=== PATIENT | female | born 1970 | race Caucasian/White ===

== ENCOUNTER → 2016-05-31 | Outpatient (CLI) | payer MEDICAID ==
--- NOTE | 2016-05-31 13:12 | XR ---
EXAMINATION TYPE: XR chest 2V DATE OF EXAM: 05/31/2016 12:58 PM COMPARISON: NONE HISTORY: Chest pain TECHNIQUE: Frontal and lateral views of the chest are obtained. FINDINGS: There is no focal air space opacity. No evidence for pnuemothorax.No pleural effusion. The cardiac silhouette size is within normal limits. The osseous structures are grossly intact. IMPRESSION: 1. No acute cardiopulmonary process.
== END | disposition home or self-care (01) ==
LOC: RADXRMAIN 12:11
PROVIDERS: ATTEND Internal Medicine
DX: R05 Cough (principal)
CPT/HCPCS: 71020

== ENCOUNTER → 2016-06-03 | Outpatient (CLI) | payer MEDICAID ==
--- NOTE | 2016-06-03 09:11 | MM ---
Reason for exam: follow-up at short interval from prior study. Last mammogram was performed 6 months ago. History: Patient had first child at age 31. Took progesterone for 2 years beginning at age 29. Physical Findings: Nurse did not find any significant physical abnormalities on exam. MG 3D Diag Mammo W/Cad RAI Bilateral CC and MLO view(s) were taken. Prior study comparison: December 18, 2015, right breast MG 3d work up w/cad RT. December 15, 2015, bilateral MG 3d screening mammo w/cad. November 28, 2014, bilateral MG screening mammo w CAD. There are scattered fibroglandular densities. There is no discrete abnormality. These results were verbally communicated with the patient and result sheet given to the patient on 06/03/16. ASSESSMENT: Negative, BI-RAD 1 RECOMMENDATION: Routine screening mammogram of both breasts in 1 year.
--- NOTE | 2016-06-03 09:12 | USB ---
Reason for exam: follow-up at short interval from prior study. History: Patient had first child at age 31. Took progesterone for 2 years beginning at age 29. US Breast BILAT Right breast ultrasound includes all four quadrants, the retroareolar region and axilla. Finding demonstrates no cystic or solid lesion seen. Left breast ultrasound includes all four quadrants, the retroareolar region and axilla. Finding demonstrates no cystic or solid lesion seen. These results were verbally communicated with the patient and result sheet given to the patient on 06/03/16. ASSESSMENT: Negative, BI-RAD 1 RECOMMENDATION: Routine screening mammogram of both breasts in 1 year. Manage patient on a clinical basis.
== END | disposition home or self-care (01) ==
LOC: RADMAMWWP 07:32
PROVIDERS: ATTEND Obstetrics & Gynecology
DX: N64.4 Mastodynia (principal); N63 Unspecified lump in breast
CPT/HCPCS: 76641; G0204; G0279

== ENCOUNTER → 2016-06-07 | Outpatient (CLI) | payer MEDICAID ==
[2016-06-07 15:30] LABS: Creatine Kinase 73 U/L (30-135); LDH 348 U/L (313-618); Magnesium 1.8 mg/dL (1.6-2.3)
[2016-06-07 15:32] LABS: Rheumatoid Factor, Qnt <9 IU/mL (<12)
[2016-06-07 16:36] LABS: Vitamin B12 447 pg/mL (239-931)
[2016-06-07 20:04] LABS: Hemoglobin A1C 4.8 % (4.2-6.1)
[2016-06-08 06:37] LABS: ANA w/Reflex to Titer POSITIVE (NEGATIVE)
== END | disposition home or self-care (01) ==
LOC: LABWHC1 14:45
PROVIDERS: ATTEND Internal Medicine
DX: R20.2 Paresthesia of skin (principal); M47.896 Other spondylosis, lumbar region
CPT/HCPCS: 36415; 82306; 82550; 82607; 82746; 83036; 83615; 83735; 85652; 86038; 86039; 86200; 86431

== ENCOUNTER → 2016-06-08 | Outpatient (CLI) | payer MEDICAID ==
[2016-06-08 18:34] LABS: Amorphous Sediment,Urine Many /hpf; Appearance,Urine Turbid (Clear); Bilirubin,Urine Negative (Negative); Glucose,Urine (UA) Negative (Negative); Ketones,Urine 2+ (Negative); Leukocyte Esterase,Urine Negative (Negative); Mucus,Urine Many /hpf; Nitrite,Urine Negative (Negative); PH, Urine 5.5 (5.0-8.0); Particle Count 286893; Protein,Urine 1+ (Negative); RBC,Urine 1 /hpf (0-5); Specific Gravity,Urine 1.023 (1.001-1.035); Squamous Epithelial Cell,Urine 4 /hpf (0-4); UA Billing (MACRO vs. MICRO) MICRO; Urobilinogen,Urine <2.0 mg/dL (<2.0); WBC,Urine 1 /hpf (0-5)
== END ==
LOC: LABWHC1 16:13
PROVIDERS: ATTEND Internal Medicine
DX: M47.896 Other spondylosis, lumbar region (principal); R20.2 Paresthesia of skin
CPT/HCPCS: 81001

== ENCOUNTER → 2016-06-09 | Outpatient (CLI) | payer MEDICAID ==
[2016-06-10 04:02] LABS: Complement Total (CH50) 110 CAE (54-144)
[2016-06-10 13:44] LABS: C-ANCA <1:20 Titer (<1:20); P-ANCA <1:20 Titer (<1:20)
[2016-06-10 14:13] LABS: Scleroderma 70 Antibody 3 UNITS (<20)
== END | disposition home or self-care (01) ==
LOC: LABWHC1 14:34
PROVIDERS: ATTEND Internal Medicine
DX: R76.0 Raised antibody titer (principal)
CPT/HCPCS: 36415; 83516; 86160; 86162; 86225; 86235; 86255

== ENCOUNTER → 2016-06-13 | Outpatient (CLI) | payer MEDICAID ==
[2016-06-14 07:08] LABS: Mis test requested (Blood) Lyme Ab with Reflex
== END | disposition home or self-care (01) ==
LOC: LABWHC1 12:38
PROVIDERS: ATTEND Internal Medicine
DX: R76.0 Raised antibody titer (principal)
CPT/HCPCS: 36415; 86140; 86618

== ENCOUNTER → 2016-07-01 | Outpatient (CLI) | payer MEDICAID ==
[2016-07-01 09:45] LABS: Calcium 9.7 mg/dL (8.4-10.2)
[2016-07-05 05:44] LABS: Vitamin E (Alpha Tocopherol) 1061 ug/dL (500-1800)
[2016-07-06 19:36] LABS: Vitamin K 202 pg/mL (80-1160)
[2016-07-10 09:06] LABS: Nicotinamide 21 ng/mL; Nicotinic Acid None Detected; Nicotinuric Acid None Detected
== END | disposition home or self-care (01) ==
LOC: LABWHC1 06-30 12:36
PROVIDERS: ATTEND Psychiatry & Neurology Pain Medicine
DX: R20.2 Paresthesia of skin (principal)
CPT/HCPCS: 36415; 82310; 82607; 83519; 83735; 84207; 84425; 84446; 84590; 84591; 84597

== ENCOUNTER → 2016-07-06 | Outpatient (CLI) | payer MEDICAID ==
--- NOTE | 2016-07-06 14:02 | MR ---
EXAMINATION TYPE: MR lumbar spine wo con DATE OF EXAM: 07/06/2016 COMPARISON: NONE HISTORY: lumbago per order. Right-sided back pain with Tingling and numbness in hands and feet per pa tient. TECHNIQUE: Multiplanar, multisequence imaging of the lumbar spine is performed without IV contrast. FINDINGS: Sagittal images of the lumbar spine show vertebral body heights and alignment to appear sat isfactory. There is disc desiccation L4-L5 and L5-S1 levels. Mild disc space L5-S1 level is present. There is increased signal posteriorly consistent with annular tear at L4-L5 and L5-S1 levels. The int ervertebral discs otherwise demonstrate normal heights and hydration. No large posterior disc herniat ions are seen on sagittal images. The conus medullaris is normal in position and signal. The bone m arrow signal intensity is within normal limits. No significant spurring is noted. There is 9 mm Tarlo v cyst posteriorly superior S2 level on sagittal image 8. On same image there is 6 mm T2 hypointense lesion posterior uterine fundus could reflect subcentimeter fibroid. Axial images show no the T12-L1, L1-L2, and L2-L3 levels to appear within normal limits. Axial images at L3-L4 level show mild broad based posterior disc protrusion mild facet arthropathy bu t spinal canal is preserved and bilateral neural foramina are patent. Axial images at L4-L5 level show broad-based right posterior disc protrusion mildly effacing anterior thecal sac, bilateral neural foramina are patent. Axial images at L5-S1 level show mild facet arthropathy bilaterally. There is broad-based left parace ntral disc protrusion seen. Spinal canal is preserved. Bilateral neural foramina are patent. IMPRESSION: Some mild multilevel degenerative changes in the mid to lower lumbar spine as detailed ab ove.
--- NOTE | 2016-07-06 14:11 | MR ---
EXAMINATION TYPE: MR brain/cspine wo DATE OF EXAM: 07/06/2016 COMPARISON: NONE HISTORY: Headache and cervicalgia per order. Additional symptoms of allodynia with pain or weakness i n both arms and fingers per patient. TECHNIQUE: Multiplanar, multisequence imaging of the cervical spine, brain, and brainstem are all per formed without IV contrast. FINDINGS: BRAIN: Diffusion weighted images demonstrate no evidence of a recent infarct or other diffusion abnormality. There is no extraaxial fluid collection or significant white matter signal abnormality. The ventricu lar system and cisternal spaces are normal in size and appearance. The brain volume is age appropria te. Midline structures demonstrate normal morphology. The craniocervical junction appears within normal limits. Normal vascular flow voids are present. The visualized sinuses are clear and the globes are i ntact. Artifact at maxillary level is noted. IMPRESSION: No suspicious finding identified. C-SPINE: FINDINGS: Sagittal images of the cervical spine show the craniocervical junction to appear within nor mal limits. The cervical and upper thoracic spinal cord is normal in course, caliber, and signal. V ertebral alignment is anatomic. Mild disc space narrowing C5-C6 level is present. The vertebral body and intravertebral disk heights are otherwise normal. Posterior disc herniations are seen effacing an terior thecal sac C5-C6 through C7-T1 levels on sagittal images. There is heterogeneous increased T2 signal in the inferior C6 endplate. No significant spurring is present. Axial images show the C2-C3, C3-C4, C4-C5 levels all to appear within normal limits. Axial images at C5-C6 level show broad-based central disc protrusion effacing anterior thecal sac on axial image 25, there is mild bilateral neural foraminal narrowing at this level identified. Axial images at C6-C7 level show broad-based central disc protrusion effacing anterior thecal sac jamie rly up to ventral surface of spinal cord. Artifact is present. Bilateral neural foramina are felt pat ent. Axial images at C7-T1 level shows central disc protrusion mildly effacing anterior thecal sac. Artifa ct is present. Bilateral neural foramina are felt patent. Artifact left mandibular level is noted. IMPRESSION: Some multilevel degenerative changes in the mid to lower cervical spine as detailed above .
== END | disposition home or self-care (01) ==
LOC: RADMRIMAIN 11:23
PROVIDERS: ATTEND Psychiatry & Neurology Neurology
DX: M47.812 Spondylosis without myelopathy or radiculopathy, cervical region (principal); M47.816 Spondylosis without myelopathy or radiculopathy, lumbar region; R51 Headache; Z88.8 Allergy status to other drugs, medicaments and biological substances
CPT/HCPCS: 70551; 72141; 72148

== ENCOUNTER → 2016-07-08 | Outpatient (CLI) | payer MEDICAID ==
[2016-07-11 16:14] LABS: Mis test requested (Blood) LYME TITER WB
== END | disposition home or self-care (01) ==
LOC: LABWHC1 11:58
PROVIDERS: ATTEND Internal Medicine
DX: R76.0 Raised antibody titer (principal)
CPT/HCPCS: 36415; 86617

== ENCOUNTER → 2016-07-19 | Outpatient (CLI) | payer MEDICAID ==
[2016-07-19 07:07] LABS: Basophils # (A) 0.1 k/uL (0-0.2); Basophils % (A) 1 %; CH 31.1; CHCM 33.9; Eosinophils # (A) 0.1 k/uL (0-0.7); Eosinophils % (A) 2 %; HCT 42.6 % (34.0-46.0); HDW 2.34; HGB 14.3 gm/dL (11.4-16.0); Luc # (Auto) 0.14; Luc % (Auto) 2; Lymphocytes # (A) 1.1 k/uL (1.0-4.8); Lymphocytes % (A) 18 %; MCHC 33.7 g/dL (31.0-37.0); MCV 92.1 fL (80.0-100.0); Monocytes # (A) 0.5 k/uL (0-1.0); Monocytes % (A) 8 %; Neutrophils # (A) 4.5 k/uL (1.3-7.7); Neutrophils % (A) 70 %; RBC 4.63 m/uL (3.80-5.40); RDW 13.5 % (11.5-15.5); WBC 6.4 k/uL (3.8-10.6); WBC (Perox) 6.09
== END | disposition home or self-care (01) ==
LOC: LABWHC1 06:32
PROVIDERS: ATTEND Pediatrics
DX: K90.9 Intestinal malabsorption, unspecified (principal); R53.83 Other fatigue
CPT/HCPCS: 36415; 82533; 82607; 82728; 82746; 82977; 83735; 84432; 84630; 85025

== ENCOUNTER → 2016-08-15 | Outpatient (CLI) | payer MEDICAID ==
--- NOTE | 2016-08-15 09:16 | MR ---
EXAMINATION TYPE: MR thoracic spine wo con DATE OF EXAM: 08/15/2016 COMPARISON: MRI cervical spine July 06, 2016 HISTORY: Thoracic spine pain per order. Worsening pain, tingling, and hypersensitivity since December per patient. TECHNIQUE: Multiplanar, multisequence imaging of thoracic spine is performed without contrast FINDINGS:Spinal cord shows normal course, caliber, and signal as it courses the thoracic spine. Vert ebral body heights and alignment are satisfactory. Disc space heights are maintained. Small posterio r disc herniations C7-T1 level is redemonstrated. Larger posterior disc herniation T6-T7 level is see n. Bone marrow signal intensity is maintained. No significant spurring is seen. Axial images at C7-T1 level are degraded by artifact that shows small central and focal right paracen tral disc protrusion minimally effacing anterior thecal sac, bilateral neural foramina are patent. Axial images at T6-T7 level show focal central disc protrusion effacing anterior thecal sac nearly up to ventral surface of spinal cord on image 3 series 601, bilateral neural foramina remain patent. Remainder axial levels are felt within normal limits. IMPRESSION: Central disc herniation T6-T7 level is noted.
== END | disposition home or self-care (01) ==
LOC: RADMRIMAIN 08:15
PROVIDERS: ATTEND Psychiatry & Neurology Neurology
DX: M51.24 Other intervertebral disc displacement, thoracic region (principal)
CPT/HCPCS: 72146

== ENCOUNTER → 2017-06-22 | Outpatient (CLI) | payer MEDICAID ==
--- NOTE | 2017-06-22 13:38 | MM ---
Reason for exam: screening (asymptomatic). Last mammogram was performed 1 year and 1 month ago. History: Patient had first child at age 31. Took progesterone for 2 years beginning at age 29. Physical Findings: A clinical breast exam by your physician is recommended on an annual basis and results should be correlated with mammographic findings. MG 3D Screening Mammo W/Cad Bilateral CC and MLO view(s) were taken. Prior study comparison: June 03, 2016, bilateral MG 3d diag mammo w/cad RAI. December 18, 2015, right breast MG 3d work up w/cad RT. The breast tissue is heterogeneously dense. This may lower the sensitivity of mammography. No suspicious abnormality. ASSESSMENT: Negative, BI-RAD 1 RECOMMENDATION: Routine screening mammogram of both breasts in 1 year.
== END ==
LOC: RADMAMWWP 10:21
PROVIDERS: ATTEND Obstetrics & Gynecology
DX: Z12.31 Encounter for screening mammogram for malignant neoplasm of breast (principal)
CPT/HCPCS: 77063; 77067

== ENCOUNTER → 2018-03-03 | Outpatient (CLI) | payer MEDICAID ==
[2018-03-03 10:48] LABS: Basophils # (A) 0.1 k/uL (0-0.2); Basophils % (A) 1 %; Eosinophils # (A) 0.1 k/uL (0-0.7); Eosinophils % (A) 2 %; HCT 39.8 % (34.0-46.0); Lymphocytes # (A) 1.3 k/uL (1.0-4.8); Lymphocytes % (A) 25 %; MCH 30.3 pg (25.0-35.0); MCHC 32.8 g/dL (31.0-37.0); MCV 92.6 fL (80.0-100.0); Mean Platelet Volume 7.5; Monocytes # (A) 0.3 k/uL (0-1.0); Monocytes % (A) 7 %; Neutrophils # (A) 3.2 k/uL (1.3-7.7); Neutrophils % (A) 62 %; Platelet Count 259 k/uL (150-450); RDW 13.4 % (11.5-15.5); WBC 5.1 k/uL (3.8-10.6)
[2018-03-05 09:41] LABS: ALT 20 U/L (8-44); AST 22 U/L (13-35); Albumin/Globulin Ratio 1.78 (1.20-2.10); Alkaline Phosphatase 59 U/L (41-126); Calcium 8.9 mg/dL (8.7-10.3); Carbon Dioxide 27.6 mmol/L (21.6-31.8); Chloride 109 mmol/L (96-109); Cholesterol 150 mg/dL (0-200); Globulin 2.3 g/dL (1.6-3.3); Glucose 87 mg/dL (70-110); Sodium 141 mmol/L (135-145); Total Bilirubin 0.8 mg/dL (0.3-1.2); Total Protein 6.4 g/dL (6.2-8.2); Triglycerides <50.0 mg/dL (0.0-149.0); VLDL Calculation 9.98 mg/dL (5.00-40.00)
[2018-03-05 09:47] LABS: DHEA Sulfate 134.8 ug/dL (26.0-430.0)
[2018-03-05 09:48] LABS: Vitamin D 25 Hydroxy 20.2 ng/mL (30.0-100.0)
[2018-03-05 10:03] LABS: Folate, Serum 14.3 ng/mL
== END | disposition home or self-care (01) ==
LOC: LABWHC1 09:32
PROVIDERS: ATTEND Pediatrics
DX: K90.9 Intestinal malabsorption, unspecified (principal); R53.83 Other fatigue
CPT/HCPCS: 36415; 80053; 80061; 82306; 82533; 82607; 82627; 82746; 85025

== ENCOUNTER → 2019-07-10 | Outpatient (CLI) | payer MEDICAID ==
--- NOTE | 2019-07-16 10:00 | MM ---
Reason for exam: screening (asymptomatic). Last mammogram was performed 2 years and 1 month ago. History: Patient had first child at age 31. Took progesterone for 2 years beginning at age 29. Physical Findings: A clinical breast exam by your physician is recommended on an annual basis and results should be correlated with mammographic findings. MG 3D Screening Mammo W/Cad Bilateral CC and MLO view(s) were taken. Prior study comparison: June 22, 2017, bilateral MG 3d screening mammo w/cad. June 03, 2016, bilateral MG 3d diag mammo w/cad RAI. The breast tissue is heterogeneously dense. This may lower the sensitivity of mammography. No significant changes when compared with prior studies. ASSESSMENT: Benign, BI-RAD 2 RECOMMENDATION: Routine screening mammogram of both breasts in 1 year.
== END | disposition home or self-care (01) ==
LOC: RADMAMWWP 13:00
PROVIDERS: ATTEND Obstetrics & Gynecology
DX: Z12.31 Encounter for screening mammogram for malignant neoplasm of breast (principal)
CPT/HCPCS: 77063; 77067

== ENCOUNTER → 2019-07-17 | Outpatient (CLI) | payer MEDICAID ==
--- NOTE | 2019-07-17 09:03 | MR ---
EXAMINATION TYPE: MR lumbar spine wo con DATE OF EXAM: 07/17/2019 COMPARISON: 07/06/2016 HISTORY: LBP, BLE radiculopathy x 2 mos CONTRAST: 0 mL intravenous Gadavist. TECHNIQUE: Multiplanar, multisequence images of the lumbar spine were acquired. FINDINGS: Cord terminates at the T12 level. L5-S1: Mild disc bulge is present with mild anterior thecal sac compression. This is slightly greater along the left paracentral region. No spinal canal stenosis is evident. Clinical correlation left S1 radicular symptoms is recommended. This is slightly greater than 07/06/2016 comparison. Disc desiccat ion is present. L4-L5: Minimal disc bulge is present with mild anterior thecal sac flattening. No AP spinal canal adelina nosis present. Neural foramen are patent. Facet hypertrophy is present. No spinal canal stenosis or n eural foraminal stenosis is present. This is stable from 2017. Disc desiccation is present. L3-L4: No significant disc bulge or disc herniation. No spinal canal stenosis. No foraminal stenosi s. Mild ligamentum flavum laxity is present. L2-L3: No significant disc bulge or disc herniation. No spinal canal stenosis. No foraminal stenosi s. Neural foramen are patent.. L1-L2: No significant disc bulge or disc herniation. No spinal canal stenosis. No foraminal stenosi s. Neural foramen are patent.. T12-L1: No significant disc bulge or disc herniation. No spinal canal stenosis. No foraminal stenos is. Neural foramen are patent.. Tarlov cyst posterior to the S2 level. IMPRESSION: 1. Slight increase in size of left paracentral disc bulge at L5-S1. Correlate for left S1 radicular s ymptoms. 2. Stable minimal bulge at L4-5 with anterior thecal sac flattening without stenosis.
== END | disposition home or self-care (01) ==
LOC: RADMRIMAIN 07:27
PROVIDERS: ATTEND Physical Medicine & Rehabilitation
DX: M51.27 Other intervertebral disc displacement, lumbosacral region (principal); M51.26 Other intervertebral disc displacement, lumbar region; M47.817 Spondylosis without myelopathy or radiculopathy, lumbosacral region; M54.16 Radiculopathy, lumbar region
CPT/HCPCS: 72148

== ENCOUNTER → 2020-02-04 | Outpatient (CLI) | payer MEDICAID | END | disposition home or self-care (01) | LOC: LABWHC1 13:01 | PROVIDERS: ATTEND Internal Medicine | DX: Z20.828 Contact with and (suspected) exposure to other viral communicable diseases (principal) | CPT/HCPCS: 36415; 86769 ==

== ENCOUNTER → 2020-10-03 | Outpatient (CLI) | payer MEDICAID ==
[2020-10-03 16:55] LABS: HCT 41.6 % (37.2-46.3); HGB 13.5 g/dL (12.0-15.0); MCHC 32.5 g/dL (32.0-37.0); MCV 92.4 fL (80.0-97.0); Mean Platelet Volume 10.7 fL (9.5-12.2); Platelet Count 304 X 10*3/uL (140-440); RDW 13.2 % (11.5-14.5); WBC 5.23 X 10*3/uL (4.50-10.00)
[2020-10-03 17:10] LABS: African American GFR (CKD) 98.9 (60.0-200.0); Albumin 4.6 g/dL (3.80-4.90); Anion Gap 4.4 mmol/L (4.00-12.00); BUN/Creat Ratio 18.75 Ratio (12.00-20.00); Carbon Dioxide 27.6 mmol/L (21.6-31.8); Chol/HDL Ratio 2.22; Globulin 2.3 g/dL (1.6-3.3); Non-African American GFR(CKD) 85.4 (60.0-200.0); Potassium 4.3 mmol/L (3.5-5.5); Total Bilirubin 0.9 mg/dL (0.3-1.2); Total Protein 6.9 g/dL (6.2-8.2)
[2020-10-03 17:19] LABS: Follicle Stimulating Hormone 73.6 mIU/mL
[2020-10-03 17:32] LABS: T4, Free (Free Thyroxine) 0.9 ng/dL (0.80-1.80)
== END | disposition home or self-care (01) ==
LOC: LABWHC1 09:24
PROVIDERS: ATTEND Physician Assistant
DX: R53.83 Other fatigue (principal); L65.9 Nonscarring hair loss, unspecified; N95.1 Menopausal and female climacteric states; R41.3 Other amnesia; R61 Generalized hyperhidrosis; G47.00 Insomnia, unspecified
CPT/HCPCS: 36415; 80053; 80061; 82306; 82607; 83001; 84144; 84439; 84443; 84481; 85027

== ENCOUNTER → 2020-10-08 | Outpatient (CLI) | payer MEDICAID ==
--- NOTE | 2020-10-09 11:16 | MM ---
Reason for exam: screening (asymptomatic). Last mammogram was performed 1 year and 3 months ago. History: Patient had first child at age 31. Took hormonal contraceptives for 10 years. Took progesterone for 2 years beginning at age 29. Physical Findings: A clinical breast exam by your physician is recommended on an annual basis and results should be correlated with mammographic findings. MG 3D Screening Mammo W/Cad Bilateral CC and MLO view(s) were taken. Prior study comparison: July 10, 2019, bilateral MG 3d screening mammo w/cad. June 22, 2017, bilateral MG 3d screening mammo w/cad. The breast tissue is heterogeneously dense. This may lower the sensitivity of mammography. Focal asymmetryupper outer left breast. This finding is changed when compared with previous exams. ASSESSMENT: Incomplete: need additional imaging evaluation, BI-RAD 0 RECOMMENDATION: Special view mammogram of the left breast. If lesion persists on supplemental views, image directed ultrasound is recommended. [facility] will attempt to contact patient to return for supplemental views and ultrasound if indicated.
== END | disposition home or self-care (01) ==
LOC: RADMAMWWP 09:57
PROVIDERS: ATTEND Obstetrics & Gynecology
DX: Z12.31 Encounter for screening mammogram for malignant neoplasm of breast (principal)
CPT/HCPCS: 77063; 77067

== ENCOUNTER → 2020-10-16 | Outpatient (CLI) | payer MEDICAID ==
--- NOTE | 2020-10-16 12:16 | MM ---
Reason for exam: additional evaluation requested from abnormal screening. Last mammogram was performed less than 1 month ago. History: Patient had first child at age 31. Took hormonal contraceptives for 10 years. Took progesterone for 2 years beginning at age 29. Physical Findings: Nurse did not find any significant physical abnormalities on exam. MG 3D Work Up W/Cad LT Spot compression CC, spot compression MLO, and LM view(s) were taken of the left breast. Prior study comparison: October 08, 2020, bilateral MG 3d screening mammo w/cad. July 10, 2019, bilateral MG 3d screening mammo w/cad. The breast tissue is heterogeneously dense. This may lower the sensitivity of mammography. There is no discrete abnormality including area of concern. These results were verbally communicated with the patient and result sheet given to the patient on 10/16/20. ASSESSMENT: Probably benign, BI-RAD 3 RECOMMENDATION: Follow-up diagnostic mammogram of the left breast in 6 months.
== END | disposition home or self-care (01) ==
LOC: RADMAMWWP 10:23
PROVIDERS: ATTEND Obstetrics & Gynecology
DX: R92.8 Other abnormal and inconclusive findings on diagnostic imaging of breast (principal)
CPT/HCPCS: 77061; 77065

== ENCOUNTER → 2021-08-11 | Outpatient (CLI) | payer BC ==
--- NOTE | 2021-08-11 11:40 | MM ---
Reason for Exam: Follow-up at short interval from prior study. Last screening mammogram was performed 10 month(s) ago. Patient History: Menarche at age 12. First Full-Term at age 31. Late child-bearing (after 29). Postmenopausal. Progesterone for 2 years from age 29 until age 31. Patient used Hormonal Contraceptives for 10 years. Risk Values: Manisha 5 year model risk: 1.5%. NCI Lifetime model risk: 11.8%. Prior Study Comparison: 07/10/2019 Bilateral Screening Mammogram, [facility]. 10/08/2020 Bilateral Screening Mammogram, [facility]. 10/16/2020 Left Diagnostic Mammogram, [facility]. Tissue Density: Left: There are scattered fibroglandular densities. Findings: Analyzed By CAD. No suspicious new mass or worrisome cluster of microcalcification in the left breast. Overall Assessment: Negative, BI-RAD 1 Management: Screening Mammogram of both breasts in 2 months. Back on schedule. Results were given to the patient verbally at the time of exam. Electronically signed and approved by: Juventino Proctor M.D.
== END | disposition home or self-care (01) ==
LOC: RADMAMWWP 10:58
PROVIDERS: ATTEND Obstetrics & Gynecology
DX: R92.8 Other abnormal and inconclusive findings on diagnostic imaging of breast (principal)
CPT/HCPCS: 77061; 77065

== ENCOUNTER → 2022-02-04 | Outpatient (CLI) | payer BC ==
--- NOTE | 2022-02-07 18:43 | MM ---
Reason for Exam: Screening (asymptomatic). Last mammogram was performed 1 year(s) and 3 month(s) ago. Patient History: Menarche at age 12. First Full-Term at age 31. Late child-bearing (after 29). Postmenopausal. Patient has history of breast feeding. Progesterone for 2 years from age 29 until age 31. Patient used Hormonal Contraceptives for 10 years. Risk Values: Manisha 5 year model risk: 1.5%. NCI Lifetime model risk: 11.8%. Prior Study Comparison: 10/08/2020 Bilateral Screening Mammogram, [facility]. 10/16/2020 Left Diagnostic Mammogram, [facility]. 08/11/2021 Left MG 3D diag mammo w/cad LT, [facility]. Tissue Density: There are scattered fibroglandular densities. Findings: Analyzed By CAD. There is no suspicious group of microcalcifications or new suspicious mass in either breast. Overall Assessment: Negative, BI-RAD 1 Management: Screening Mammogram of both breasts in 1 year. 1. Patient should continue monthly self breast exams. 2. A clinical breast exam by your physician is recommended on an annual basis. 3. This exam should not preclude additional follow-up of suspicious palpable abnormalities. Electronically signed and approved by: Veronica Bell M.D. Radiologist
== END | disposition home or self-care (01) ==
LOC: RADMAMWWP 14:55
PROVIDERS: ATTEND Obstetrics & Gynecology
DX: Z12.31 Encounter for screening mammogram for malignant neoplasm of breast (principal); Z78.0 Asymptomatic menopausal state
CPT/HCPCS: 77063; 77067

== ENCOUNTER → 2023-01-17 | Outpatient (CLI) | payer BC ==
--- NOTE | 2023-01-22 13:05 | MR ---
Right ankle MRI. HISTORY: Ankle pain following trauma. COMPARISON: None TECHNIQUE: Multiecho multiplanar images of the right ankle were obtained without contrast. FINDINGS: There is a mildly displaced fracture of the distal tip anterior process of the calcaneus. There is ex tensive bone contusion of the cuboid bone, navicular bone and anterior superior talus. There is no injury to the flexor or extensor tendons or of the peroneal tendons or Achilles tendon. There is no ligamentous injury. IMPRESSION: 1. Fracture of the distal tip of the anterior process of the calcaneus. Bone contusion of the talus, cuboid and navicular bones. 2. No tendinous or ligamentous injury
== END | disposition home or self-care (01) ==
LOC: RADMRIMAIN 09:25
PROVIDERS: ATTEND Orthopaedic Surgery
DX: S82.891A Other fracture of right lower leg, initial encounter for closed fracture (principal); S90.01XA Contusion of right ankle, initial encounter; M65.9 Synovitis and tenosynovitis, unspecified